=== PATIENT | male | born 1995 | race Two or more races ===

== ENCOUNTER 2019-06-13 19:08 | Emergency (ER) | payer OTHER ==
[2019-06-13 19:29] VITALS: BP 147/50; PULSE 84; TEMP 97.9; BMI 27.0
--- NOTE | 2019-06-13 20:07 | PDOC ---
History of Present Illness - General Chief Complaint: Blurry Vision Stated Complaint: LT EYE PROBLEM Time Seen by Provider: 06/13/19 20:07 History Source: Patient - History of Present Illness Initial Comments: 06/13/19 20:33 Chief complaint: Blurry vision left eye Patient 23-year-old healthy male who states around [place] time he was hit with a ball to the left eye while playing indoor soccer, had his glasses on. He did have some pulsating pain but used some [id number] drops and felt better. Starting 2 days ago he started noticing blurry vision explained it is not being able to see to the right side. GENERAL/CONSTITUTIONAL: No fever, weakness. dizziness HEAD, EYES, EARS, NOSE AND THROAT: + change in vision. No ear pain or discharge. No sore throat. CARDIOVASCULAR: No chest pain RESPIRATORY: No shortness of breath or cough GASTROINTESTINAL: No pain, nausea, vomiting, diarrhea or constipation GENITOURINARY: No dysuria MUSCULOSKELETAL: No neck or back pain SKIN: No rash NEUROLOGIC: No headache, vertigo, loss of consciousness, or loss of sensation. GENERAL: The patient is awake, alert, and fully oriented, in no acute distress. HEAD: Normal with no signs of trauma. EYES: Pupils equal, round and reactive to light, sclera anicteric, conjunctiva clear. No hyphema no gross fundal findings using ophthalmoscope, slit-lamp not available ENT: pharynx: no erythema, no exudate, uvula midline NECK: supple CHEST: clear, nontender, rr ABD: soft, nontender BACK: no tenderness or signs of injury EXTREMITIES: Normal range of motion, no edema. NEUROLOGICAL: Normal speech, normal gait. SKIN: Warm, Dry Past History - Past Medical History Allergies/Adverse Reactions: Allergies Allergy/AdvReac Type Severity Reaction Status Date / Time avocado Allergy Severe Difficulty Verified 06/13/19 19:25 Breathing No Known Drug Allergies Allergy Verified 06/13/19 19:25 Home Medications: Ambulatory Orders NK [No Known Home Medication] 06/13/19 COPD: No Other medical history: Pt denies - Psycho Social/Smoking Cessation Hx Smoking History: Never smoked Have you smoked in the past 12 months: No Information on smoking cessation initiated: No Hx Alcohol Use: No Drug/Substance Use Hx: No *Physical Exam - Vital Signs Last Vital Signs Temp Pulse Resp BP Pulse Ox 97.9 F 84 20 147/50 L 100 06/13/19 19:25 06/13/19 19:25 06/13/19 19:25 06/13/19 19:25 06/13/19 19:25 Procedures - Eye Procedure Alcaine Drops Administered: Yes Eye Irrigated w/ Saline(Joel Lens): No Progress: 06/13/19 20:40 No corneal abrasion to the left eye Medical Decision Making - Medical Decision Making 06/13/19 20:40 Patient who was hit in the eye but was wearing glasses around [place] now having blurry vision to the affected eye. Patient has his glasses on and his vision was 2100 to the left eye and 20/40 to the right eye patient has no corneal abrasion. Patient will have to follow-up with ophthalmology on Saturday Discussed issues, findings, results, applicable medications and treatments and follow-up. All these were understood and all questions were answered 06/13/19 20:43 Discharge - Discharge Information Problems reviewed: Yes Clinical Impression/Diagnosis: Blurry vision, left eye Condition: Stable Disposition: HOME - Admission No - Follow up/Referral Referrals: Syed Bowen [Primary Care Provider] - Chris Stevens MD [Staff Physician] - Kishore Thrasher MD [Staff Physician] - - Patient Discharge Instructions Additional Instructions: It is very important for you to follow-up with the interactive multimedia designer on Saturday they will do a full evaluation of your eyes and do proper treatment to figure out why you are having the blurry vision. - Post Discharge Activity
[2019-06-13] MEDS ORDERED: FLUORESCEIN NA 1 EA STRIP OS ONE (20:08)
[2019-06-13] MEDS ORDERED: TETRACAINE 0.5% OPHTH SOLN 2 ML BOTTLE OS ONE (20:08)
[2019-06-13] MEDS ORDERED: FLUORESCEIN NA 1 EA STRIP ONE (20:10)
[2019-06-13] MEDS ORDERED: TETRACAINE 0.5% OPHTH SOLN 2 ML BOTTLE ONE (20:10)
== END 2019-06-13 20:45 | disposition home or self-care (01) ==
LOC: JERFT 19:08
PROC: 4A07X0Z Measurement of Visual Acuity, External Approach (ICD-10-PCS; principal; 2019-06-13)
DX: S05.8X2A Other injuries of left eye and orbit, initial encounter (principal); W21.02XA Struck by soccer ball, initial encounter; Y93.66 Activity, soccer; Y92.39 Other specified sports and athletic area as the place of occurrence of the external cause; Y99.8 Other external cause status
CPT/HCPCS: 99173; 99282-25